=== PATIENT | male | born 1995 | race Caucasian/White ===

== ENCOUNTER 2018-06-20 10:26 | Emergency (ER) | payer MEDICAID ==
[~2018-06-20] VITALS: Ht 177.8 cm; Wt 88.6 kg
[2018-06-20 11:56] VITALS: BP 126/84
== END 2018-06-20 12:10 | disposition home or self-care (01) ==
LOC: EMS 10:26
DX: F10.20 Alcohol dependence, uncomplicated (principal); F12.90 Cannabis use, unspecified, uncomplicated

== ENCOUNTER 2018-06-27 07:13 | Emergency (ER) | payer MEDICAID ==
[~2018-06-27] VITALS: Ht 177.8 cm; Wt 88.6 kg
[2018-06-27 08:04] VITALS: BP 135/82
== END 2018-06-27 08:06 | disposition home or self-care (01) ==
LOC: EMS 07:13
DX: F10.10 Alcohol abuse, uncomplicated (principal); F12.90 Cannabis use, unspecified, uncomplicated